=== PATIENT | female | born 1990 | race Caucasian/White ===

== ENCOUNTER 2019-11-26 09:32 | Outpatient (CLI) | payer OTHER | END 2019-11-26 09:33 | disposition critical access hospital (66) | LOC: EMS 09:32 | PROVIDERS: ATTEND Surgery | DX: T43.222A Poisoning by selective serotonin reuptake inhibitors, intentional self-harm, initial encounter (principal); R11.2 Nausea with vomiting, unspecified; R25.2 Cramp and spasm | CPT/HCPCS: A0425; A0427 ==

== ENCOUNTER 2019-11-26 09:52 | Emergency (ER) | payer OTHER ==
[2019-11-26] MEDS ORDERED: LORazepam 2 MG/ML VIAL IVP STA (10:07)
[2019-11-26] MEDS ORDERED: SODIUM CHLORIDE 0.9% 1,000 ML IV STA (10:07)
[2019-11-26 10:24] LABS: BASOPHILS % (AUTO) 0.5 %; EOSINOPHILS # (AUTO) 0.1 10^3/uL (0.0-0.7); EOSINOPHILS % (AUTO) 1.3 %; HGB - HEMOGLOBIN 12.9 g/dL (12.0-16.0); LYMPHOCYTES # (AUTO) 2.5 10^3/uL (1.5-3.5); LYMPHOCYTES % (AUTO) 40.2 %; MEAN CORPUSCULAR HEMOGLOBIN 33.7 pg (27.0-31.0); MEAN CORPUSCULAR HGB CONC 35.9 g/dL (32.0-36.0); MEAN CORPUSCULAR VOLUME 93.7 fL (81.0-99.0); MEAN PLATELET VOLUME 10.2 fL (7.9-10.8); MONOCYTES # (AUTO) 0.6 10^3/uL (0.0-1.0); MONOCYTES % (AUTO) 9.3 %; NEUTROPHILS % (AUTO) 48.5 %; PLT - PLATELET COUNT 185 10^3/uL (130-450); RED BLOOD COUNT 3.83 10^6/uL (4.20-5.40); RED CELL DISTRIBUTION WIDTH 12.5 % (12.0-15.0); WHITE BLOOD COUNT 6.1 x10^3/uL (4.8-10.8)
[2019-11-26 10:39] LABS: ACETAMINOPHEN < 10 ug/mL (10-30); ALBUMIN 4.3 g/dL (3.2-5.5); ALBUMIN/GLOBULIN RATIO 1.4 (1.0-2.2); ALKALINE PHOSPHATASE 54 IU/L (42-121); ALT ALANINE AMINOTRANSFERASE 24 IU/L (10-60); AST ASPARTATE AMINOTRANSFERASE 33 IU/L (10-42); BILIRUBIN,TOTAL 0.7 mg/dL (0.2-1.0); BUN - BLOOD UREA NITROGEN 17 mg/dL (6-20); CALCIUM 8.4 mg/dL (8.5-10.3); CARBON DIOXIDE - CO2 19 mmol/L (21-32); CHLORIDE 106 mmol/L (101-111); CREATININE 0.9 mg/dL (0.4-1.0); GLUCOSE 86 mg/dL (70-100); LIPASE 69 U/L (22-51); SALICYLATE < 6.0 mg/dL; SODIUM 141 mmol/L (135-145); TOTAL PROTEIN 7.3 g/dL (6.7-8.2)
--- NOTE | 2019-11-26 10:54 | ED Physician Documentation ---
PD HPI OVERDOSE - Stated complaint Stated Complaint: OD - Chief complaint Chief Complaint: MHE - History obtained from History obtained from: Patient, EMS - History of Present Illness Timing - onset: How many hours ago (6) Subtance(s) ingested: Single (Zoloft, her own Rx. When asked why she did that, she answered directly that she was trying to kill herself.), EtOH Associated symptoms: Agitated, NVD (vomited an hour or so after ingestion and she says had white material, presumed pill remnants.). No: Abdominal pain, Palpitations Contributing factors: Depresssed (for long time, worse the past few months. Has had counseling that helps, but no counseling since August due to COVID, per patient. She denies recent new stresses. 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 She has not had any recent change in medicines.) Review of Systems Constitutional: denies: Fever Eyes: denies: Loss of vision Nose: denies: Rhinorrhea / runny nose, Congestion Throat: denies: Sore throat Cardiac: denies: Chest pain / pressure, Palpitations Respiratory: denies: Dyspnea, Cough GI: reports: Nausea (just this morning since ingestion), Vomiting. denies: Abdominal Pain, Diarrhea : denies: Dysuria, Frequency, Missed period Skin: denies: Abrasion (s), Laceration (s) Musculoskeletal: denies: Neck pain, Back pain Neurologic: denies: Altered mental status, Headache Psychiatric: reports: Depressed, Suicidal. denies: Delusions, Anxiety Endocrine: denies: Weight loss PD PAST MEDICAL HISTORY - Past Medical History Past Medical History: No Cardiovascular: None Respiratory: None Neuro: None Psych: Depression, Anxiety - Past Surgical History Past Surgical History: No - Allergies Allergies/Adverse Reactions: Allergies Allergy/AdvReac Type Severity Reaction Status Date / Time No Known Drug Allergies Allergy Verified 11/26/19 10:12 - Living Situation Living Situation: reports: With friend(s) (roommate) Living Arrangement: reports: At home - Social History Does the pt smoke?: No Smoking Status: Never smoker Does the pt drink ETOH?: No Does the pt have substance abuse?: No PD ED PE NORMAL - Vitals Vital signs reviewed: Yes - General General: Alert and oriented X 3, Well developed/nourished, Other (Anxious and tearful. Appears a bit restless in her legs.) - HEENT HEENT: PERRL, EOMI (no nystagmus), Ears normal, Pharynx benign - Neck Neck: Supple, no meningeal sign, No adenopathy - Cardiac Cardiac: No murmur. No: RRR (regular but tachycardic) - Respiratory Respiratory: Clear bilaterally - Abdomen Abdomen: Normal bowel sounds, Soft, Non tender - Female Female : Deferred - Rectal Rectal: Deferred - Back Back: No CVA TTP - Derm Derm: Normal color, Warm and dry - Extremities Extremities: No tenderness to palpate, Normal ROM s pain - Neuro Neuro: Alert and oriented X 3, No motor deficit, No sensory deficit, Normal spe ech, Other (Normal patellar reflexes and normal reaction at the ankles. There is some restlessness but no muscle tremor nor rigidity.) Eye Opening: Spontaneous Motor: Obeys Commands Verbal: Oriented GCS Score: 15 Results - Vitals Vitals: Vital Signs - 24 hr 11/26/19 11/26/19 11/26/19 10:04 10:12 10:42 Temperature 36.8 C Heart Rate 127 H 117 H 112 H Respiratory 24 16 16 Rate Blood Pressure 102/79 147/87 H 125/74 O2 Saturation 99 98 97 11/26/19 11/26/19 11/26/19 11:12 12:12 13:12 Temperature Heart Rate 98 89 89 Respiratory 16 16 14 Rate Blood Pressure 142/85 H 132/65 H 133/81 H O2 Saturation 99 100 96 11/26/19 11/26/19 13:42 15:00 Temperature Heart Rate 89 84 Respiratory 14 16 Rate Blood Pressure 122/85 H 121/65 O2 Saturation 96 97 Oxygen O2 Source Room air - EKG (time done) 10:38 Rate: Rate (enter#) (114) Rhythm: Sinus tachycardia, Other (PACs noted) [place]: Normal Intervals: Normal MA. No: Prolonged QT (borderline but still normal) QRS: Poor R wave progression Ischemia: Normal ST segments. No: ST elevation c/w ischemia, ST depression - Labs Labs: Laboratory Tests 11/26/19 11/26/19 11/26/19 10:10 10:10 10:10 WBC 6.1 RBC 3.83 L Hgb 12.9 Hct 35.9 L MCV 93.7 MCH 33.7 H MCHC 35.9 RDW 12.5 Plt Count 185 MPV 10.2 Neut # (Auto) 3.0 Lymph # (Auto) 2.5 [place] # (Auto) 0.6 Eos # (Auto) 0.1 Baso # (Auto) 0.0 Absolute Nucleated RBC 0.00 Nucleated RBC % 0.0 Sodium 141 Potassium 3.5 Chloride 106 Carbon Dioxide 19 L Anion Gap 16.0 H BUN 17 Creatinine 0.9 Estimated GFR (MDRD) 75 L Glucose 86 Calcium 8.4 L Total Bilirubin 0.7 AST 33 ALT 24 Alkaline Phosphatase 54 Total Protein 7.3 Albumin 4.3 Globulin 3.0 Albumin/Globulin Ratio 1.4 Lipase 69 H TSH 1.04 Urine Color Urine Clarity Urine pH Ur Specific [place] Urine Protein Urine Glucose (UA) Urine Ketones Urine Occult Blood Urine Nitrite Urine Bilirubin Urine Urobilinogen Ur Leukocyte Esterase Ur Microscopic Review Urine Culture Comments Urine HCG, Qual Salicylates < 6.0 Urine Opiates Screen Ur Oxycodone Screen Urine Methadone Screen Ur Propoxyphene Screen Acetaminophen < 10 L Ur Barbiturates Screen Ur Tricyclics Screen Ur Phencyclidine Scrn Ur Amphetamine Screen U Methamphetamines Scrn U Benzodiazepines Scrn Urine Cocaine Screen U Cannabinoids Screen Ethyl Alcohol 154.6 11/26/19 11/26/19 11/26/19 13:25 14:06 14:06 WBC RBC Hgb Hct MCV MCH MCHC RDW Plt Count MPV Neut # (Auto) Lymph # (Auto) [place] # (Auto) Eos # (Auto) Baso # (Auto) Absolute Nucleated RBC Nucleated RBC % Sodium Potassium Chloride Carbon Dioxide Anion Gap BUN Creatinine Estimated GFR (MDRD) Glucose Calcium Total Bilirubin AST ALT Alkaline Phosphatase Total Protein Albumin Globulin Albumin/Globulin Ratio Lipase TSH Urine Color YELLOW Urine Clarity CLEAR Urine pH 6.0 Ur Specific [place] 1.015 Urine Protein NEGATIVE Urine Glucose (UA) NEGATIVE Urine Ketones NEGATIVE Urine Occult Blood NEGATIVE Urine Nitrite NEGATIVE Urine Bilirubin NEGATIVE Urine Urobilinogen 0.2 (NORMAL) Ur Leukocyte Esterase NEGATIVE Ur Microscopic Review NOT INDICATED Urine Culture Comments NOT INDICATED Urine HCG, Qual NEGATIVE Salicylates Urine Opiates Screen NEGATIVE Ur Oxycodone Screen NEGATIVE Urine Methadone Screen NEGATIVE Ur Propoxyphene Screen NEGATIVE Acetaminophen Ur Barbiturates Screen NEGATIVE Ur Tricyclics Screen NEGATIVE Ur Phencyclidine Scrn NEGATIVE Ur Amphetamine Screen NEGATIVE U Methamphetamines Scrn NEGATIVE U Benzodiazepines Scrn NEGATIVE Urine Cocaine Screen NEGATIVE U Cannabinoids Screen NEGATIVE Ethyl Alcohol 82.1 PD MEDICAL DECISION MAKING - ED course Complexity details: reviewed results, re-evaluated patient (Appears calmer with some fluids and IV Ativan. She is not hyperthermic nor hyperreflexic. She is tachycardic with some restlessness but that could be just anxiety. We will watch her for a while regarding serotonin syndrome. Her blood pressure and is good. We will watch her vitals closely. Poison control was contacted and agreed with this assessment for at least a 6-hour postingestion timeframe. She is she is actually around that time already but still want to watch for improvement on her restlessness and tachycardia.), considered differential, d/w patient ED course: The patient has been in the emergency department for 5hours almost and it is now close to 11 hours postingestion. She is not tachycardic and does not have any tremor nor hyperreflexia. Blood pressures remained stable. Her temperature was normal. There is no noted nystagmus or confusion. At this point she is not demonstrating any serotonin excess symptoms. Her alcohol level had cleared below legal limit level and she was seen by social work who in conjunction with [facility] arranged excepting provider for voluntary transfer for psychiatric care. Departure - Departure Disposition: 65 Psych Hosp/Unit DC/Xfer Clinical Impression: Suicide attempt Depression Qualifiers: Depression Type: unspecified Qualified Code(s): F32.9 - Major depressive disorder, single episode, unspecified Medication overdose Qualifiers: Encounter type: initial encounter Injury intent: intentional self-harm Qualified Code(s): T50.902A - Poisoning by unspecified drugs, medicaments and biological substances, intentional self-harm, initial encounter Condition: Stable
[2019-11-26] MEDS ORDERED: LACTATED RINGERS 1,000 ML IV STA (11:03)
[2019-11-26 14:12] LABS: BILIRUBIN,URINE NEGATIVE (NEGATIVE); GLUCOSE, URINE (UA) NEGATIVE (NEGATIVE); KETONES,URINE (UA) NEGATIVE (NEGATIVE); LEUKOCYTE ESTERASE, URINE NEGATIVE (NEGATIVE); NITRITE,URINE NEGATIVE (NEGATIVE); OCCULT BLOOD,URINE NEGATIVE (NEGATIVE); PROTEIN,URINE NEGATIVE (NEGATIVE); UROBILINOGEN,URINE 0.2 (NORMAL) E.U./dL (NORMAL)
[2019-11-26 14:17] LABS: CLARITY,URINE CLEAR (CLEAR); HCG UR QUAL NEGATIVE
[2019-11-26 14:20] LABS: MUDS CUTOFF CONCENTRATIONS CUTOFF CONC BELOW:
[2019-11-26 14:22] LABS: AMPHETAMINE SCREEN,URINE NEGATIVE (NEGATIVE); BENZODIAZEPINES SCREEN, URINE NEGATIVE (NEGATIVE); COCAINE SCREEN URINE NEGATIVE (NEGATIVE); METHADONE SCREEN, URINE NEGATIVE (NEGATIVE); METHAMPHETAMINES SCREEN, URINE NEGATIVE (NEGATIVE); OPIATE SCREEN, URINE NEGATIVE (NEGATIVE); OXYCODONE SCREEN, URINE NEGATIVE (NEGATIVE); PROPOXYPHENE SCREEN, URINE NEGATIVE (NEGATIVE); TRICYCLIC ANTIDEPRESSANT,URINE NEGATIVE (NEGATIVE)
[2019-11-26 18:16] VITALS: BP 122/78
== END 2019-11-26 18:16 ==
LOC: ED 09:52
DX: T43.222A Poisoning by selective serotonin reuptake inhibitors, intentional self-harm, initial encounter (principal); F32.9 Major depressive disorder, single episode, unspecified
CPT/HCPCS: 36415; 80320; 80329; 81003; 81025; 83690; 93005; 96361; 96374; 99285; J2060; J7120; 80053; 80306; 80307; 81001; 84443; 85025; 87086